=== PATIENT | female | born 1990 ===

== ENCOUNTER 2017-02-26 18:38 | Emergency (ER) | payer MEDICAID ==
[~2017-02-26] VITALS: Ht 162.6 cm; Wt 55.0 kg
[2017-02-26 18:54] VITALS: BP 119/81; PULSE 96; RESP 16; O2SAT 99
--- NOTE | 2017-02-26 19:00 | ED.REPORT ---
HPI-General Illness Date of Service Feb 26, 2017 ED Provider: Jose Antonio Brower MD The patient is a 26 year old female with a history of methamphetamine use who presents to the ED from the crisis center for a mental health evaluation. The patient has been in the crisis center for the past 4-5 days, and per the staff there she has been disruptive and needs inpatient care for her methamphetamine withdrawal. However, the patient reports that her last methamphetamine use was six days ago and she is feeling much improved. She is unsure as to why she was sent here but believes she may have been discharged because they need bed capacity. The patient currently reports mild paranoia, improved from last week. She denies nausea, vomiting, fever, suicidal ideation, homicidal ideation, or other symptoms. The patient expected to be discharged home from the crisis center in two days and has no ride home at this time. Nursing Notes Stated Complaint: MEDICAL CLEARANCE CRISIS Chief Complaint: Substance Abuse Nursing Notes Reviewed: Yes Allergies: Coded Allergies: No Known Allergies (Unverified , 02/26/17) General Time Seen by MD: 18:59 Chief Complaint Other (Mental Health Evaluation) Hx Obtained From: Patient Arrived By: Walk-in Sudden in Onset?: No Onset Occurred: 1 week ago Context of Onset: Amphetamine use Symptom Duration: Since onset Severity: Current: No pain currently Severity: Maximum: No pain Pertinent Negative: Relieved by nothing Context Related History: Reports Drug dependence Recent Healthcare: No recent doctor visit Past Medical History Past Medical History None reported Past Surgical History None reported Smoking History Unknown if Ever Smoker Social History Drug Use: Meth Ambulatory Status Independent Review of Systems + Request for mental health evaluation, mild paranoia - improved from one week ago Full Review of Systems Constitutional: Denies: Fever Respiratory: Denies: Non-productive cough, Shortness of breath GI: Denies: Nausea, Vomiting Psychiatric: Denies: Homicidal ideation, Suicidal ideation Complete sys rev & neg: except as marked. Physical Exam Vital Signs Vital Signs Date Time Temp Pulse Resp B/P Pulse Ox O2 Delivery O2 Flow Rate FiO2 02/26/17 22:25 36.5 79 16 100/59 99 Room Air 02/26/17 18:54 37 96 16 119/81 99 Room Air Initial VS: Reviewed Head / Eyes: Atraumatic, Normocephalic ENT: Conjunctiva normal, No scleral icterus Neck: Supple, Full range of motion Respiratory: No respiratory distress Neurologic: Alert, Oriented, Nonfocal General/Constitutional: Awake, Alert Skin: Atraumatic, Color NL Psychiatric: Not suicidal, Not homicidal, No hallucinations Abnormal Mood/Affect: Positive: Anxious, Fearful (Mild), Pressured speech Abnormal Thinking / Perception: Positive: Flight of ideas Interpretation & Diagnostics URINE : Negative URINE DRUG SCREEN: Negative BREATHALYZER: 0 Re-Eval/Medical Decision Med Decision/Clinical Course Patient is calm and cooperative and in no distress. Wants to go home. Does contract for safety. U-tox and alcohol level are normal. Time of Eval: 21:50 Patient Status: Condition improved Re-Evaluation/Progress Note: Discussed with patient lab results, diagnosis, and plan for discharge. Follow-up and return to the ER instructions given. Patient agrees with plan for care and all questions were addressed. Consultation #1: Consulted With: child welfare caseworker Call Returned at: 20:05 Lamp Decorator: Will see patient, Agrees with eval, Agrees with plan Note: Patient evaluated by social media project manager. See Social Work note. Consultation #2: Consulted With: child welfare caseworker Call Returned at: 20:41 Lamp Decorator: Agrees with eval, Agrees with plan Note: Recommends discharge if transportation can be obtained. Consultation #3: Consulted With: child welfare caseworker Call Returned at: 21:49 Lamp Decorator: Agrees with eval, Agrees with plan Note: Patient can take a cab home and follow-up with outpatient treatment. Counseled Regarding: Diagnosis, Lab results, Need for follow-up, When/why to return to ED Discharge & Departure Primary Impression: Acute situational disturbance Additional Impression: Hypomania Disposition: Home Discharge Condition All VS Reviewed: Yes Condition: Improved Additional Instructions: I recommend follow-up with your mental health and substance abuse counselor in the coming days. Scribe Attestation Portions of this note were transcribed by Allison Hickman. I, Dr. Brower, personally performed the history, physical exam, and medical decision-making; I reviewed and confirmed the accuracy of the information in the transcribed note. Signed by: Sheldon Zapata, 02/26/2017, 23:15 Jose Antonio Brower MD Feb 26, 2017 19:00 ALLISON HICKMAN Feb 26, 2017 19:07
[2017-02-26 22:25] VITALS: BP 100/59; PULSE 79; RESP 16; O2SAT 99
== END 2017-02-26 22:39 | disposition home or self-care (01) ==
LOC: SED 18:38
DX: F43.0 Acute stress reaction (principal); F30.8 Other manic episodes